=== PATIENT | male | born 1980 | race Caucasian/White ===

== ENCOUNTER 2021-06-19 09:46 | Emergency (ER) | payer SELFPAY ==
[2021-06-19] MEDS ORDERED: BACTROBAN OINT22 GM EXT (11:17)
== END 2021-06-19 12:00 | disposition home or self-care (01) ==
LOC: ER1 09:46
DX: L98.8 Other specified disorders of the skin and subcutaneous tissue (principal); F17.200 Nicotine dependence, unspecified, uncomplicated; Z88.0 Allergy status to penicillin
CPT/HCPCS: 99283

== ENCOUNTER 2021-09-02 12:14 | Emergency (ER) | payer MEDICAID ==
[~2021-09-02 12:14] MED LIST: BACTROBAN OINT22 GM EXT
[2021-09-02] MEDS ORDERED: ZYRTEC10 MG PO (15:35)
== END 2021-09-02 16:37 | disposition home or self-care (01) ==
LOC: ER1 12:14
DX: J06.9 Acute upper respiratory infection, unspecified (principal); F17.200 Nicotine dependence, unspecified, uncomplicated; Z88.0 Allergy status to penicillin; Z20.822 Contact with and (suspected) exposure to COVID-19
CPT/HCPCS: 99283; U0002

== ENCOUNTER 2021-09-06 15:35 | Emergency (ER) | payer MEDICAID ==
[~2021-09-06 15:35] MED LIST changes: +ZYRTEC10 MG PO
[2021-09-06] MEDS ORDERED: ZYRTEC10 MG PO (16:52)
[2021-09-06] MEDS ORDERED: ZITHROMAX250 MG PO (16:52)
[2021-09-06] MEDS ORDERED: NASONEX17 GM (16:52)
== END 2021-09-06 17:10 | disposition home or self-care (01) ==
LOC: ER1 15:35
DX: J18.9 Pneumonia, unspecified organism (principal); J40 Bronchitis, not specified as acute or chronic; N39.0 Urinary tract infection, site not specified; F17.210 Nicotine dependence, cigarettes, uncomplicated; Z88.0 Allergy status to penicillin
CPT/HCPCS: 99283

== ENCOUNTER 2022-04-04 18:16 | Emergency (ER) | payer OTHER ==
[~2022-04-04 18:16] MED LIST changes: +NASONEX17 GM; +ZITHROMAX250 MG PO
[2022-04-04] MEDS ORDERED: BACTROBAN OINT22 GM EXT (19:19)
== END 2022-04-04 20:20 | disposition home or self-care (01) ==
LOC: ER1 18:16
DX: S91.012A Laceration without foreign body, left ankle, initial encounter (principal); F17.210 Nicotine dependence, cigarettes, uncomplicated; Z88.0 Allergy status to penicillin; Z23 Encounter for immunization; W26.8XXA Contact with other sharp object(s), not elsewhere classified, initial encounter
CPT/HCPCS: 12001; 90471; 90715; 99282